=== PATIENT | female | born 1955 | race African-American/Black ===

== ENCOUNTER 2016-04-21 15:24 | Emergency (ER) | payer OTHER ==
[~2016-04-21] VITALS: Ht 157.5 cm; Wt 84.0 kg
--- NOTE | ~2016-04-21 | EKG ---
[place] [address] [facility] [place] [address] ELECTROCARDIOGRAM REPORT Name: CHON CRUZ [facility] [id number] Admission: 04/21/16 Attend Phys: Discharge: 04/21/16 Date of : 55 Report #: [id number] THIS REPORT FOR: //name// [facility] ED Test Date: 2016-04-21 Test Time: 15:30:25 Pat Name: CHON CRUZ Department: Room: Gender: F Cyber Policy And Strategy Planner: Samuel PAREKH : 1955 Requested By: James Adair Order Number: [id number] MD: Alan Marcelino Measurements Intervals [place] Rate: 81 P: 51 [place]: 166 QRS: -12 QRSD: 96 T: 30 QT: 370 QTc: 430 Interpretive Statements Sinus rhythm Poor R-wave progression No previous ECG available for comparison Electronically Signed On 04-22-2016 9:03:25 CODING COMPLIANCE SPECIALIST by Alan Marcelino [email or web address] <ELECTRONICALLY SIGNED> By: Alan Marcelino MD, [facility] 04/22/16 0903 1530 1530 Alan Marcelino MD, FACC /EPI
[~2016-04-21 15:24] MED LIST: CYCLOBENZAPRINE5 MG PO; FOLIC ACID1 MG PO; HYDROCHLOROTHIA25 M2 PO; IBUPROFEN 600600 M1 PO; METFORMIN HCL500 MG PO; NORCO 5-325 TA1 EACH PO; NORFLEX100 MG PO; ULTRAM 50MG TAB50 MG PO; [UNRECOGNIZED DRUG - OTHER]
[2016-04-21] MEDS ORDERED: DONEPEZIL HCL5 MG PO (15:37)
[2016-04-21 15:54] LABS: ABSOLUTE NEUTROPHILS 3.1 thou/uL (1.4-8.2); BASOPHILS 0.2 % (0.0-2.0); EOSINOPHILS 0.3 % (0.0-3.0); HEMATOCRIT 35.5 % (37.0-47.0); HEMOGLOBIN 11.7 gm/dL (12.0-15.0); LYMPHOCYTES 12.2 % (24.0-44.0); MCH 24.9 pg (26.0-34.0); MCHC 32.8 % (28.0-37.0); MCV 75.8 fL (80.0-100.0); MONOCYTES 6.3 % (1.0-8.0); PLATELET COUNT 147 thou/uL (150-400); RBC 4.69 mil/uL (4.20-5.00); RDW 16.2 % (10.5-14.5); WBC 3.9 thou/uL (4.0-11.0)
[2016-04-21 15:57] LABS: MANUAL DIFF NO
[2016-04-21 16:02] LABS: ANION GAP 6 mmol/L (7-16); BUN 10 mg/dL (7-18); CALCIUM 8.8 mg/dL (8.5-10.1); CHLORIDE 107 mmol/L (98-107); CO2 29 mmol/L (21-32); CREATININE 0.8 mg/dL (0.6-1.3); GLUCOSE 92 mg/dL (70-99); POTASSIUM 3.9 mmol/L (3.5-5.1); SODIUM 142 mmol/L (136-145)
[2016-04-21 16:10] LABS: ALBUMIN 3.4 g/dL (3.4-5.0); ALKALINE PHOSPHATASE 88 U/L (46-116); SGOT 35 U/L (15-37); SGPT 43 U/L (30-65); TOTAL BILIRUBIN 0.5 mg/dL (<0.1-1.0); TOTAL PROTEIN 7.5 g/dL (6.4-8.2); TROPONIN-I < 0.04 ng/mL (<0.04-0.07)
[2016-04-21 17:01] LABS: URINE BILIRUBIN NEGATIVE (Negative); URINE BLOOD NEGATIVE (Negative); URINE COLOR YELLOW; URINE GLUCOSE-RANDOM* NEGATIVE (Negative); URINE KETONES NEGATIVE (Negative); URINE NITRITE NEGATIVE (Negative); URINE PROTEIN (DIPSTICK) NEGATIVE (Negative); URINE SPECIFIC GRAVITY 1.015 (1.003-1.035); URINE UROBILINOGEN 0.2 E.U./dl (0.2-1.0)
[2016-04-21 17:46] VITALS: BP 146/84
== END 2016-04-21 18:16 | disposition home or self-care (01) ==
LOC: ER 15:24
PROVIDERS: Physician Assistant
DX: I95.1 Orthostatic hypotension (principal); I10 Essential (primary) hypertension; K21.9 Gastro-esophageal reflux disease without esophagitis; J45.909 Unspecified asthma, uncomplicated; G47.39 Other sleep apnea; Z86.2 Personal history of diseases of the blood and blood-forming organs and certain disorders involving the immune mechanism; Z96.653 Presence of artificial knee joint, bilateral; Z85.3 Personal history of malignant neoplasm of breast; Z98.890 Other specified postprocedural states

== ENCOUNTER 2018-08-11 13:05 | Emergency (ER) | payer OTHER ==
[~2018-08-11] VITALS: Ht 154.9 cm; Wt 77.1 kg
[~2018-08-11 13:05] MED LIST changes: +BISACODYL SUPP10 MG RECTAL; +DONEPEZIL HCL5 MG PO; +GAS-X125 MG PO; +MIRALAX17 GM PO; +PENICILLIN V P500 MG PO; +SENNA-DOCUSATE1 EACH PO; +SENNA8.6 MG PO
[2018-08-11 13:43] LABS: HEMATOCRIT 38.1 % (37.0-47.0); HEMOGLOBIN 12.6 gm/dL (12.0-15.0); MCH 26.2 pg (26.0-34.0); MCHC 33.2 g/dL (28.0-37.0); MCV 78.9 fL (80.0-100.0); PLATELET COUNT 148 thou/uL (150-400); RBC 4.83 mil/uL (4.20-5.00); RDW 14.5 % (10.5-14.5); WBC 3.5 thou/uL (4.0-11.0)
[2018-08-11 13:50] LABS: ANION GAP 4 mmol/L (7-16); BUN 16 mg/dL (7-18); CALCIUM 9.4 mg/dL (8.5-10.1); CHLORIDE 106 mmol/L (98-107); CO2 31 mmol/L (21-32); CREATININE 0.8 mg/dL (0.6-1.0); GLUCOSE 86 mg/dL (74-106); POTASSIUM 3.9 mmol/L (3.5-5.1); SODIUM 141 mmol/L (136-145)
[2018-08-11 13:59] LABS: ALBUMIN 3.4 g/dL (3.4-5.0); SGOT 25 U/L (15-37); SGPT 25 U/L (30-65); TOTAL BILIRUBIN 0.4 mg/dL (<0.1-1.0); TOTAL PROTEIN 7.9 g/dL (6.4-8.2); TROPONIN-I <0.06 ng/mL (<0.06)
[2018-08-11 14:20] LABS: ABSOLUTE NEUTROPHILS 1.4 thou/uL (1.4-8.2); ANISOCYTOSIS 1+; ATYPICAL LYMPHS 1 %
[2018-08-11] MEDS ORDERED: MIRALAX17 GM PO (15:11)
[2018-08-11 16:43] VITALS: BP 116/67
--- NOTE | 2018-08-12 16:41 | EKG ---
[address] [address] ELECTROCARDIOGRAM REPORT Name: CHON CRUZ [facility] [id number] ������������������ Admission: 08/11/18 ������������������ Attend Phys: Discharge: 08/11/18 ������������������ Date of : 55 Report #: [id number] ����������������������������������������������������������������� [id number] THIS REPORT FOR: //name// [facility] ED Test Date: 2018-08-11 Test Time: 13:48:41 Pat Name: CHON CRUZ Department: Room: Gender: F Gyroscope Repairer: chana : 1955 Requested By: Jes Estes Order Number: [id number] MD: Haroldo Villarreal Measurements Intervals [place] Rate: 68 P: 61 [place]: 163 QRS: 4 QRSD: 112 T: 45 QT: 416 QTc: 443 Interpretive Statements Sinus rhythm Left atrial enlargement Borderline intraventricular conduction delay Abnormal R-wave progression, late transition Minimal ST elevation, lateral leads Compared to ECG 04/21/2016 15:30:25 Atrial abnormality now present ST (T wave) deviation now present Poor R-wave progression no longer present Electronically Signed On 08-12-2018 16:40:46 CDT by Haroldo Villarreal [email or web address] ��������������������������������������������� <ELECTRONICALLY SIGNED> ���������������������������������������� By: Haroldo Villarreal MD ��������������������������������������������� 08/12/18 1640 1348 1348 Haroldo Villarreal MD /EPI
== END 2018-08-11 16:30 | disposition home or self-care (01) ==
LOC: ER 13:05
PROVIDERS: Nurse Practitioner Family
DX: K59.00 Constipation, unspecified (principal); R13.10 Dysphagia, unspecified; I10 Essential (primary) hypertension; J45.909 Unspecified asthma, uncomplicated; K21.9 Gastro-esophageal reflux disease without esophagitis; G47.30 Sleep apnea, unspecified; Z90.13 Acquired absence of bilateral breasts and nipples

== ENCOUNTER 2019-05-25 19:31 | Inpatient (IN) | payer OTHER ==
[~2019-05-25] VITALS: Ht 154.9 cm; Wt 85.3 kg
[2019-05-25 19:32] VITALS: BP 152/89
[2019-05-25 21:26] LABS: HEMATOCRIT 36.8 % (37.0-47.0); HEMOGLOBIN 11.9 gm/dL (12.0-15.0); MCH 25.7 pg (26.0-34.0); MCHC 32.3 g/dL (28.0-37.0); MCV 79.5 fL (80.0-100.0); PLATELET COUNT 150 thou/uL (150-400); RBC 4.62 mil/uL (4.20-5.00); RDW 15.4 % (10.5-14.5); WBC 3.3 thou/uL (4.0-11.0)
[2019-05-25 21:39] LABS: ALBUMIN 2.9 g/dL (3.4-5.0); CALCIUM 8.8 mg/dL (8.5-10.1); CREATININE 0.6 mg/dL (0.6-1.0); TOTAL BILIRUBIN 0.5 mg/dL (<0.1-1.0); TOTAL PROTEIN 7.6 g/dL (6.4-8.2)
[2019-05-25 21:53] LABS: POTASSIUM 6.5 mmol/L (3.5-5.1)
[2019-05-25 22:30] LABS: URINE BILIRUBIN NEGATIVE (Negative); URINE BLOOD NEGATIVE (Negative); URINE CLARITY CLEAR; URINE COLOR YELLOW; URINE GLUCOSE-RANDOM* NEGATIVE (Negative); URINE KETONES NEGATIVE (Negative); URINE LEUKOCYTES-REFLEX NEGATIVE (Negative); URINE NITRITE-REFLEX NEGATIVE (Negative); URINE PROTEIN (DIPSTICK) NEGATIVE (Negative); URINE SPECIFIC GRAVITY 1.025 (1.005-1.035)
[2019-05-25] MEDS ORDERED: METHOTREXATE 22.5 M1 PO (22:42)
[2019-05-25] MEDS ORDERED: AMITRIPTYLINE H10 M1 PO (22:43)
[2019-05-25] MEDS ORDERED: HYDROCHLOROTHIA25 M2 PO (22:43)
[2019-05-25] MEDS ORDERED: RIVASTIGMINE1 EACH TOP (22:43)
[2019-05-25] MEDS ORDERED: ARICEPT10 M1 PO (22:45)
[2019-05-25 22:47] LABS: ABSOLUTE NEUTROPHILS 1.3 thou/uL (1.4-8.2)
[2019-05-25 22:48] LABS: PLATELET ESTIMATE NORMAL
[2019-05-25 23:55] VITALS: BP 131/83
[2019-05-26 00:34] VITALS: BP 131/83
[2019-05-26 00:42] VITALS: BP 146/97
[2019-05-26 05:55] LABS: CALCIUM 8.5 mg/dL (8.5-10.1); CREATININE 0.6 mg/dL (0.6-1.0)
[2019-05-26 05:59] LABS: HEMATOCRIT 34.8 % (37.0-47.0); HEMOGLOBIN 11.2 gm/dL (12.0-15.0); MCH 25.7 pg (26.0-34.0); MCHC 32.1 g/dL (28.0-37.0); MCV 79.9 fL (80.0-100.0); RBC 4.36 mil/uL (4.20-5.00); RDW 15.7 % (10.5-14.5); WBC 3.6 thou/uL (4.0-11.0)
[2019-05-26 06:29] LABS: POTASSIUM 3.7 mmol/L (3.5-5.1)
--- NOTE | 2019-05-26 07:37 | NUR ---
PT TO UNIT AROUND 2129. ADMISSION ASSESSMENT COMPLETED WITH HELP FROM SON. PT HAS A HX OF STROKE
--- NOTE | 2019-05-26 07:47 | NUR ---
PT TO UNIT AROUND 0030. ADMISSION ASSESSMENT COMPLETED WITH HELP FROM THE SON. PT HAS A HX OF HEAD INJURY AND SOME APHASIA. RATES PAIN 02/06, MANAGED WITH IV PAIN MEDS. PT HAS BEEN NPO SINCE COMING TO THE UNIT. SON REPORTS SHE HAS CHRONIC PAIN IN BACK, LEGS AND HIPS. REPOSITIONING HELPS. FLUIDS INFUSING PER ORDER. NO BM OVERNIGHT. SLEEPING ON AND OFF, WITH SON AT BEDSIDE.
[2019-05-26 08:00] VITALS: BP 141/87
--- NOTE | 2019-05-26 14:08 | NUR ---
ASSESSMENT-PT LIVES AT HOME WITH HER , DTR AND 2 SONS. WHEN PT WALKS FAMILY OR THE PVT SUTY PERSON ARE RIGHT THERE WITH HER AND HOLD ONTO HER OCCASIONALLY. DTR OR PVT DUTY PERSON ASSISTS WITH HER ADLS/SHOWER. PER DTR PT HAS CORTICAL BASAL DEGENERATION. PT IS FOLLOWED BY NEUROLOGY. PT HAS A RELATIVELY NEW PCP DR JARAMILLO. PT HAS A WALKER BUT NOT USING IT BECAUSE OF WEAKNESS IN HER H\ONE HAND. FAMILY PROVIDES TRANSPORTATION AND DOES ALL OF THE COOKING, CLEANING AND LAUNDRY. PT HAS A PVT DUTY NURSE THAT COMES M-F 7-11AM TO ASSIST WITH MED SET-UP, GETTING DRESSED, MEALS, ADLS, BATHROOM ETC. S/W SON [place]INCEN[place] AND WITH DTR AT BEDSIDE. DTR SAYS DR JARAMILLO'S OFFICE WAS SUPPOSED TO ARRANGE HH PT/OT BUT NO ONE HAS CALLED THEM. MESSAGE LEFT FOR DARIEL JARAMILLO'S NURSE TO INQUIRE ABOUT THIS. FOLLOWING TO ASSIST WITH DC PLANNING.
--- NOTE | 2019-05-26 20:08 | NUR ---
Assumed care of pt at 0700. Pt's family states they would prefer for pt not to get any narcotics. IVF infusing. GI doctor and surgeon visited with patient. Bowel prep started this afternoon. NPO after midnight. Family at bedside. Report given to kelli NERGON.
[2019-05-26 20:57] VITALS: BP 133/86
[2019-05-27 04:36] VITALS: BP 145/86
--- NOTE | 2019-05-27 05:39 | NUR ---
ASSUMED PT CARE AT 1900. UPON SHIFT CHANGE, STOOL SAMPLE WAS COLLECTED. SON CONCERNED ABOUT EMESIS POSSIBLY CONTAINING BLOOD, NO EPISODES OF VOMITING TONIGHT. PT ONLY ABLE TO TOLERATE ABOUT A QUARTER OF THE BOWEL PREP. FLUIDS DECREASED DUE TO SONS CONCERNS ABOUT INCREASING EDEMA. SON AT BEDSIDE, BOTH RESTING COMFORTABLY. WILL CONTINUE TO MONITOR.
[2019-05-27 06:12] LABS: HEMATOCRIT 33.9 % (37.0-47.0); HEMOGLOBIN 11.1 gm/dL (12.0-15.0); MCH 26.2 pg (26.0-34.0); MCHC 32.7 g/dL (28.0-37.0); RBC 4.24 mil/uL (4.20-5.00); RDW 15.8 % (10.5-14.5); WBC 4.5 thou/uL (4.0-11.0)
[2019-05-27 06:20] LABS: CREATININE 0.6 mg/dL (0.6-1.0); POTASSIUM 3.5 mmol/L (3.5-5.1)
[2019-05-27 07:55] VITALS: BP 142/83
[2019-05-27 08:00] VITALS: BP 142/83; BP 171/53
[2019-05-27 17:06] VITALS: BP 140/89
--- NOTE | 2019-05-27 18:48 | NUR ---
VSS-AFEBRILE. LUNGS CLEAR-ROOM AIR. SIGMOIDOSCOPY TODAY, TOLERATED WELL. OOB WITH ASSIST X 1, AMBULATED UNIT WITH SON. OCCASIONAL C/O GENERALIZED BODY PAIN, IT IS WELL RELIEVED WITH OCCASIONAL IV PAIN MEDICATION. GOOD APPETITE, TOLERATING REGULAR DIET WITH NO REPORTED N/V. ACTIVE BS-PASSING FLATUS. FALL PRECAUTIONS IN PLACE.
[2019-05-27 19:10] VITALS: BP 122/66
--- NOTE | 2019-05-27 23:50 | NUR ---
1900 ASSUMED CARE OF PT AFTER BEDSIDE REPORT, PT SITTING UP IN CHAIR WITH FAMILY PRESENT. 2030 ASSESSMENT COMPLETED, PT STATES SHE IS HAVING SOME PAIN AND WOULD LIKE MORPHINE ONCE SHE GETS INTO BED, FAMILY AND PT STATE SHE WOULD LIKE TO REFUSE SCDS AND IV FLUIDS THEY STATE SHE IS DRINKING AND EATING WITHOUT DIFFICULTY, FALL PRECAUTIONS IN PLACE, PT WITH DEPENDENT EDEMA TO BLE, SLIGHT EDEMA TO RHAND, FAMILY STATES IS NORMAL FOR HER. WILL CONTINUE TO MONITOR WITH HOURLY ROUNDS
[2019-05-28 03:30] VITALS: BP 113/72
[2019-05-28 06:05] LABS: HEMATOCRIT 29.4 % (37.0-47.0); HEMOGLOBIN 9.7 gm/dL (12.0-15.0); MCH 26.3 pg (26.0-34.0); MCV 79.8 fL (80.0-100.0); RBC 3.69 mil/uL (4.20-5.00); RDW 15.5 % (10.5-14.5); WBC 3.1 thou/uL (4.0-11.0)
[2019-05-28 06:15] LABS: CALCIUM 8.1 mg/dL (8.5-10.1); CREATININE 0.6 mg/dL (0.6-1.0); POTASSIUM 3.1 mmol/L (3.5-5.1)
[2019-05-28 08:20] VITALS: BP 107/69
[2019-05-28] MEDS ORDERED: MIRALAX119 GM PO (10:22)
[2019-05-28 10:32] VITALS: BP 107/69
--- NOTE | 2019-05-28 11:58 | NUR ---
Assumed care of pt at 0700. Pt a&o but slow to respond. Denies pain. Potassium 3.1 this am. Provider aware. New order noted. Family at bedside. Call light within reach. Fall precautions in place. Pt will discharge to home.
--- NOTE | 2019-05-29 10:14 | P ---
[facility] [place] [address] PROCEDURE REPORT Name: CHON CRUZ Room #: 437-P [facility] IN M.R.#: [id number] Admission: 05/25/19 Attend Phys: Jay Jay Vallecillo MD Discharge: 05/28/19 Date of : 55 Report #: [id number] THIS REPORT FOR: cc: KIM - No family physician/PCP FAM - No family physician/PCP Davie Brooks MD ~ CC: [facility] physician/PCP Jay Jay Vallecillo MD DATE OF SERVICE: 05/27/2019 PROCEDURE PERFORMED: Flexible sigmoidoscopy with biopsies. HISTORY OF PRESENT ILLNESS: The patient is a 63-year-old female who was admitted with abdominal pain through the Emergency Room as well as abdominal distention. A CT scan of the abdomen and pelvis on 05/25 was performed showing marked distention of the colon. Etiology of obstruction is not definitely identified. There does not appear to be a definite sigmoid volvulus. There is a possible mass in the posterior rectum measuring 2.5 cm. Some history was obtained through the patient's daughter today. The patient is a poor historian. It is unclear when her last colonoscopy was, but this was many years ago. DESCRIPTION OF PROCEDURE: The risks and benefits of the procedure were explained to the patient and her daughter. Those risks including but not limited to bleeding, perforation and the risk of sedation. They understood these risks and gave informed consent. Sedation was given using propofol per anesthesia. Next, a digital rectal exam was initially performed, which was normal. Next, using a standard Olympus colonoscope, the scope was placed in the patient's anus and advanced under direct vision to approximately the transverse colon. The prep was poor in many areas. Multiple washings and aspirations were performed. The colon was diffusely dilated throughout. There was no evidence of volvulus. No mass was seen in the rectum. The transverse colon that was visualized was normal as well as the descending colon. There was a mild area of possible colitis in the sigmoid colon. Several biopsies were obtained. Again, the colon was diffusely dilated, but no stricture, masses or volvulus was seen. Close examination of the rectum showed normal mucosa. There were no mass lesions, no polyps. On retroflexion, small nonbleeding internal hemorrhoids were noted, otherwise normal. The scope was then withdrawn and the procedure terminated. The patient tolerated the procedure well. IMPRESSION: 1. Dilated colon throughout areas visualized today. No mass, lesions, volvulus or strictures were noted. 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 2. Possible mild colitis in the sigmoid colon. Biopsies obtained. [address] [address] PROCEDURE REPORT Name: PEPE CRUZOMA Room #: 437-P [facility] IN M.R.#: [id number] Admission: 05/25/19 Attend Phys: Jay Jay Vallecillo MD Discharge: 05/28/19 Date of : 55 Report #: [id number] 3. Internal hemorrhoids. RECOMMENDATIONS: 1. Await biopsy results. 2. Would continue a bowel regimen of MiraLax on a daily basis. Thank you for allowing me to participate in her care. <ELECTRONICALLY SIGNED> By: Davie Brooks MD 05/29/19 1014 1215 1850 Davie Brooks MD /nt
--- NOTE | 2019-05-30 17:09 | PATH ---
[facility] [address] [place] [address] PATHOLOGY RPT PROCEDURE Name: CHON PACHECO Room #: 437-P [facility] IN M.R.#: [id number] Admission: 05/25/19 Date of : 55 Discharge: 05/28/19 Report #: [id number] Path Case #: [id number] [facility] Accession Number: [id number] . 01 Material submitted: . sigmoid colon - BX OF SIGMOID COLITIS . 01 Clinical history: . Abnormal CT scan. . 02 Diagnosis: Large intestinal mucosa, sigmoid colitis, endoscopic biopsy: - Mild chronic colitis, see comment. - Negative for dysplasia or malignancy. (IUV:pit 05/30/2019) QTP 05/30/2019 1208 Local . 02 Comment: Examination shows a mild increase in lamina propria cellularity by lymphocytes, plasma cells, as well as eosinophils. An occasional focus of cryptitis is noted. There are architectural abnormalities identified within a subtle fibrotic lamina propria. Surface epithelial ulceration, crypt abscess formation, viral inclusion or parasitic organisms are not identified. Overall findings may be suggestive of a chronic colitis, or chronic diverticulitis. Please correlate clinically. (IUV:pit 05/30/2019) . 02 Electronically signed: . Franca Morgan MD, Pathologist NPI- [id number] . 01 Gross description: . Received in formalin labeled "Chon Pacheco, BX of sigmoid colitis" is a 0.9 x 0.3 x 0.1 cm aggregate of morrison-brown soft tissue fragments. The specimen is submitted entirely in A1. ([facility]; 05/29/2019) [facility] 05/29/2019 1050 Local . 02 Pathologist provided ICD-10: K52.9 . 02 CPT . 988747 Specimen Comment: A courtesy copy of this report has been sent to [phone] Specimen Comment: [phone] Specimen Comment: Report sent to / DR MIX Performed at: [address] [place] [address] PATHOLOGY RPT PROCEDURE Name: CHON PACHECO Room #: 437-P [facility] IN M.R.#: [id number] Admission: 05/25/19 Date of : 55 Discharge: 05/28/19 Report #: [id number] Path Case #: [id number] [facility], [place], [place] [id number] MD Damian Ryan MD Phone: [phone] Performed at: [address] [id number] MD Franca Morgan MD Phone: [phone]
--- NOTE | 2019-06-03 15:32 | EKG ---
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: nir graham : 1955 Requested By: Mariia Ocampo Order Number: [id number] MD: Alan Marcelino Measurements Intervals [place] Rate: 84 P: 61 [place]: 169 QRS: -9 QRSD: 106 T: 47 QT: 402 QTc: 476 Interpretive Statements Sinus rhythm No significant abnormality Compared to ECG 08/11/2018 13:48:41 No significant change was found Electronically Signed On 05-27-2019 9:22:22 COMPUTATOR by Alan Marcelino [email or web address] <ELECTRONICALLY SIGNED> By: Alan Marcelino MD, [facility] 05/27/19 0922 27 27 Alan Marcelino MD, [facility] /EPI
== END 2019-05-28 12:31 | disposition home or self-care (01) | DRG 388 ==
LOC: ER 19:31 → 4S 23:36 → EROBS 23:36 → 4S 05-26 00:29 → ENTRNSPT 05-28 11:42 → 4S 05-28 12:31
PROVIDERS: Emergency Medicine Emergency Medical Services; Nurse Practitioner Family; ADMIT Hospitalist
PROC: 0DBN8ZX Excision of Sigmoid Colon, Via Natural or Artificial Opening Endoscopic, Diagnostic (ICD-10-PCS; principal; 2019-05-27)
DX: K56.609 Unspecified intestinal obstruction, unspecified as to partial versus complete obstruction (principal); E43 Unspecified severe protein-calorie malnutrition; K59.00 Constipation, unspecified; I10 Essential (primary) hypertension; K21.9 Gastro-esophageal reflux disease without esophagitis; J45.909 Unspecified asthma, uncomplicated; G47.30 Sleep apnea, unspecified; Z96.653 Presence of artificial knee joint, bilateral; K63.89 Other specified diseases of intestine; M06.9 Rheumatoid arthritis, unspecified; G31.85 Corticobasal degeneration; R19.05 Periumbilic swelling, mass or lump; D50.9 Iron deficiency anemia, unspecified; Z90.710 Acquired absence of both cervix and uterus; Z90.10 Acquired absence of unspecified breast and nipple; Z79.899 Other long term (current) drug therapy; Z90.13 Acquired absence of bilateral breasts and nipples
CPT/HCPCS: 10195; 62110; 62900; 70005